=== PATIENT | male | born 1975 | race African-American/Black ===

== ENCOUNTER 2019-06-18 13:59 | Emergency (ER) | payer OTHER ==
[2019-06-18 14:47] LABS: #Basophils 0.1 thou/uL (0.0-0.2); #Eosinphils 0.1 thou/uL (0.0-0.7); #Lymphocytes 1.4 thou/uL (1.20-3.40); #Monocytes 1.1 thou/uL (0.11-0.59); %Basophils 0.6 % (0.0-1.0); %Eosinophils 0.6 % (0.0-10.0); %Lymphocytes 11.2 % (21.0-51.0); %Monocytes 8.5 % (0.0-10.0); %Neutrophils 79.1 % (42.0-75.0); Hemoglobin 11.5 g/dL (14.0-18.0); Mean Corpuscular HGB CONC 32.2 g/dL (32.0-36.0); Mean Corpuscular Hemoglobin 26.4 pg (27.0-31.0); Mean Corpuscular Volume 81.8 fL (78.0-98.0); Mean Platelet Volume 6.8 fL (7.4-10.4); Platelet Count 340 thou/uL (130-400); RBC Distribution Width 13.7 % (11.5-14.5); Red Blood Cell (RBC) Count 4.36 mill/uL (4.70-6.10); White Blood Cell (WBC) Count 12.6 thou/uL (4.8-10.8)
[2019-06-18 14:50] LABS: INR-International Normal Ratio 1.4; Prothrombin Time 17.5 SEC (12.0-14.7)
[2019-06-18 15:08] LABS: ALT (SGPT) 19 U/L (8-55); AST (SGOT) 17 U/L (5-34); Alkaline Phosphatase 88 U/L (40-150); Anion Gap 13 mmol/L (10-20); BUN (Urea Nitrogen) 9 mg/dL (8.9-20.6); Bilirubin, Total 0.5 mg/dL (0.2-1.2); CK (CPK) 248 U/L (30-200); Calc. Creatinine Clearance 0 mL/min (70-130); Calcium 9.5 mg/dL (7.8-10.44); Carbon Dioxide 29 mmol/L (22-29); Chloride 95 mmol/L (98-107); Estimated GFR-MDRD Greater than 90; Globulin 4.3 g/dL (2.4-3.5); Glucose 96 mg/dL (70-105); Protein, Total 8.3 g/dL (6.0-8.3); Sodium 134 mmol/L (136-145)
[2019-06-18 15:23] LABS: Potassium 2.9 mmol/L (3.5-5.1)
--- NOTE | 2019-06-18 15:23 | ULT ---
LEFT LOWER EXTREMITY VENOUS ULTRASOUND WITH DOPPLER: Date: 06/18/19 HISTORY: Left lower extremity edema. COMPARISON: None. TECHNIQUE: Yao scale, color flow, Doppler imaging, and spectral waveform analysis performed of the left lower e xtremity venous system. FINDINGS: There is compressibility, presence of flow, and augmentation in the common femoral vein, proximal and mid femoral vein. There is only partial compressibility of the distal femoral vein and popliteal vei n. There is vascular flow suggesting possible partial thrombosis. The profunda femoral vein and great er saphenous vein demonstrate flow. The posterior tibial vein cannot be appreciated due to edema. IMPRESSION: 1. Findings suggesting partial thrombosis of the distal femoral vein and popliteal vein. 2. Limited evaluation of the posterior tibial vein due to edema. The possibility of thrombus can nei ther be confirmed nor excluded, at the level of the posterior tibial vein. POS: [facility]
[2019-06-18] MEDS ORDERED: Potassium Chloride 20 MEQ TAB ONE (15:27)
[2019-06-18] MEDS ORDERED: Piperacillin/Tazobactam 3.375 GM VIAL ONE (16:30)
[2019-06-18] MEDS ORDERED: Morphine 4 MG/ML VIAL ONE (17:12)
[2019-06-18 18:35] LABS: Lactic Acid 2.5 mmol/L (0.5-2.2)
== END 2019-06-18 21:59 | disposition short-term general hospital (02) ==
LOC: ERS 13:59 → EEVIPCON 13:59 → ERS 21:59
DX: L03.116 Cellulitis of left lower limb (principal); I82.4Z2 Acute embolism and thrombosis of unspecified deep veins of left distal lower extremity; E87.6 Hypokalemia; I10 Essential (primary) hypertension; Z79.01 Long term (current) use of anticoagulants; Z79.899 Other long term (current) drug therapy
CPT/HCPCS: 36415; 80053; 82550; 83605; 85025; 85610; 85730; 87040; 96365; 96367; 96375; J2270; J2543; J3370

== ENCOUNTER 2020-04-20 16:06 | Emergency (ER) | payer OTHER ==
[~2020-04-20 16:06] MED LIST: Iopamidol-370 76% 500 ML 1 ML ONE
[2020-04-20 16:47] LABS: Hemoglobin 12.1 g/dL (14.0-18.0); Mean Corpuscular HGB CONC 31.6 g/dL (32.0-36.0); Mean Corpuscular Volume 82.3 fL (78.0-98.0); Platelet Count 281 thou/uL (130-400); RBC Distribution Width 14.7 % (11.5-14.5); Red Blood Cell (RBC) Count 4.64 mill/uL (4.70-6.10); White Blood Cell (WBC) Count 20.5 thou/uL (4.8-10.8)
[2020-04-20 16:56] LABS: D-Dimer Test 0.82 *mcg/mL (0.27-0.43)
[2020-04-20 16:59] LABS: INR-International Normal Ratio 1.3; Prothrombin Time 15.8 sec (12.0-14.7)
[2020-04-20 17:08] LABS: ALT (SGPT) 16 U/L (8-55); AST (SGOT) 17 U/L (5-34); Albumin 3.7 g/dL (3.5-5.0); Alkaline Phosphatase 80 U/L (40-110); Anion Gap 12 mmol/L (10-20); BUN (Urea Nitrogen) 11 mg/dL (8.9-20.6); Bilirubin, Total 0.6 mg/dL (0.2-1.2); Calc. Creatinine Clearance 0 mL/min (70-130); Calcium 9.4 mg/dL (7.8-10.44); Carbon Dioxide 24 mmol/L (22-29); Chloride 103 mmol/L (98-107); Estimated GFR-MDRD Greater than 90; Glucose 96 mg/dL (70-105); Potassium 3.7 mmol/L (3.5-5.1); Protein, Total 7.7 g/dL (6.0-8.3); Sodium 135 mmol/L (136-145)
[2020-04-20 17:14] LABS: Band 12 % (5-11); Hypochromia SLIGHT = 6-15 cells (100X) (0-5/hpf); Lymphocytes 9 % (21-51); MDiff Complete? YES; Monocytes 5 % (0-10); Neutrophil 73 % (42-75); Ovalocytes SLIGHT = 2-5 cells (100X) (0-1/hpf); Platelet Morphology Comment Appears Adequate; Polychromasia SLIGHT = 2-3 cells (100X) (0-2/hpf)
[2020-04-20 17:32] LABS: Bacteria/HPF 3+ HPF (None Seen); Bilirubin Negative (Negative); Blood, Urine 2+ (Negative); Clarity Turbid (Clear); Glucose, Urine (Dipstick) Normal (Negative); Ketone, Urine Trace mg/dL (Negative); Leukocyte 75 Leu/uL (Negative); Mucous/LPF Rare LPF (<2+); Nitrite Negative (Negative); Protein, Urine (Dipstick) 50 mg/dL (Neg-Trace); RBC/HPF 21-50 HPF (0-3); Specific Gravity, Urine 1.026 (1.002-1.036)
--- NOTE | 2020-04-20 17:39 | ULT ---
EXAM: BILATERAL LOWER EXTREMITY VENOUS DUPLEX ULTRASOUND INCLUDING COLOR AND SPECTRAL DOPPLER IMAGIN04/20/20 HISTORY: Lower extremity swelling and edema. Exam performed from groin to ankle including visualized greater saphenous, common femoral, superficia l femoral, profunda femoral, popliteal, and trifurcation and posterior tibial vein regions. There is phasic flow at all levels with normal compressibility and normal augmentation. No evidence for intral uminal thrombus. IMPRESSION: No evidence for intraluminal thrombus. No evidence for deep venous thrombosis. POS: [facility]
[2020-04-20] MEDS ORDERED: cefTRIAXone\\ROCEPHIN 2 GM VIAL ONE (19:36)
[2020-04-20] MEDS ORDERED: Acetaminophen 500 MG TAB ONE (19:56)
--- NOTE | 2020-04-20 20:11 | CT ---
CTA CHEST: 04/20/20 Axial tomograms obtained with multiplanar reconstruction and 3D postprocessing following angio protoc ol with IV contrast. INDICATIONS: Dyspnea. FINDINGS: Pulmonary arteries show adequate opacification. No evidence of pulmonary embolus. Thoracic aorta is u nremarkable. The lungs show no evidence of acute infiltrate. No effusion. Mild pleural thickening anterior right l ower chest. Images through the upper abdomen unremarkable. Evidence of a cyst from the superior left kidney which is incompletely imaged. Tiny cystic lesion in the right lobe of the liver is subcentimet er. IMPRESSION: 1. No evidence of pulmonary embolus. 2. No acute lung process identified. POS: [facility]
[2020-04-20] MEDS ORDERED: Ketorolac Tromethamine 30 MG/ML VIAL ONE (20:20)
== END 2020-04-20 22:47 | disposition short-term general hospital (02) ==
LOC: ERS 16:06
DX: N39.0 Urinary tract infection, site not specified (principal); D72.829 Elevated white blood cell count, unspecified; I10 Essential (primary) hypertension; Z86.718 Personal history of other venous thrombosis and embolism; Z79.899 Other long term (current) drug therapy; Z79.84 Long term (current) use of oral hypoglycemic drugs
CPT/HCPCS: 71275; 80053; 81003; 81015; 85025; 85379; 85610; 85730; 87077; 87086; 87186; 93005; 93970; 96365; 96366; 96375; J0696; J1885; Q9967

== ENCOUNTER 2020-07-24 15:53 | Emergency (ER) | payer OTHER ==
[2020-07-24 16:37] LABS: #Basophils 0.1 thou/uL (0.0-0.2); #Eosinphils 0.2 thou/uL (0.0-0.7); #Lymphocytes 1.2 thou/uL (1.20-3.40); #Monocytes 1.3 thou/uL (0.11-0.59); #Neutrophils 12.1 thou/uL (1.40-6.50); %Basophils 0.6 % (0.0-1.0); %Eosinophils 1.4 % (0.0-10.0); %Lymphocytes 8.4 % (21.0-51.0); %Monocytes 8.4 % (0.0-10.0); %Neutrophils 81.3 % (42.0-75.0); Hemoglobin 12.4 g/dL (14.0-18.0); Mean Corpuscular HGB CONC 33.2 g/dL (32.0-36.0); Mean Corpuscular Hemoglobin 27.6 pg (27.0-31.0); Mean Corpuscular Volume 83.3 fL (78.0-98.0); Platelet Count 254 thou/uL (130-400); RBC Distribution Width 13.4 % (11.5-14.5); Red Blood Cell (RBC) Count 4.49 mill/uL (4.70-6.10); White Blood Cell (WBC) Count 14.8 thou/uL (4.8-10.8)
[2020-07-24 16:52] LABS: ALT (SGPT) 21 U/L (8-55); AST (SGOT) 17 U/L (5-34); Albumin 3.7 g/dL (3.5-5.0); Alkaline Phosphatase 84 U/L (40-110); Anion Gap 10 mmol/L (10-20); BUN (Urea Nitrogen) 13 mg/dL (8.9-20.6); Bilirubin, Total 0.7 mg/dL (0.2-1.2); Calc. Creatinine Clearance 0 mL/min (70-130); Calcium 9.1 mg/dL (7.8-10.44); Carbon Dioxide 26 mmol/L (22-29); Chloride 103 mmol/L (98-107); Estimated GFR-MDRD Greater than 90; Globulin 4.3 g/dL (2.4-3.5); Glucose 102 mg/dL (70-105); Potassium 3.3 mmol/L (3.5-5.1); Sodium 136 mmol/L (136-145)
--- NOTE | 2020-07-24 17:07 | ULT ---
Right lower extremity venous Doppler ultrasound 07/24/2020 COMPARISON: None HISTORY: Swelling, edema, pain, assess for DVT TECHNIQUE: Multiplanar grayscale sonographic imaging venous structures right lower extremity obtained with color flow and spectral analysis FINDINGS: Right common femoral vein, greater saphenous vein, profunda femoral vein, femoral vein, pop liteal vein, and posterior tibial vein are patent. Normal blood flow, augmentation, and compression within the deep venous system. No evidence for DVT. IMPRESSION: No evidence for deep venous thrombosis of the right lower extremity.
[2020-07-24 17:24] LABS: Bacteria/HPF 4+ HPF (None Seen); Bilirubin Negative (Negative); Blood, Urine 2+ (Negative); Clarity Turbid (Clear); Glucose, Urine (Dipstick) Normal (Negative); Ketone, Urine 10 mg/dL (Negative); Leukocyte 500 Leu/uL (Negative); Mucous/LPF 1+ LPF (<2+); Nitrite 2+ (Negative); Protein, Urine (Dipstick) 70 mg/dL (Neg-Trace); Specific Gravity, Urine 1.027 (1.002-1.036); WBC/HPF Greater than 50 HPF (0-3)
[2020-07-24] MEDS ORDERED: Nitrofurantoin Macrocrystal 50 MG CAP PO SCH (17:45)
== END 2020-07-24 18:40 ==
LOC: ERS 15:53 → EEVIPCON 15:53 → ERS 18:40
DX: N39.0 Urinary tract infection, site not specified (principal); Z86.718 Personal history of other venous thrombosis and embolism; Z79.01 Long term (current) use of anticoagulants; Z79.899 Other long term (current) drug therapy
CPT/HCPCS: 36415; 80053; 81003; 81015; 83605; 85025; 87040; 87077; 87086; 87186